=== PATIENT | female | born 1935 | race Caucasian/White ===

== ENCOUNTER → 2017-09-04 | Outpatient (CLI) | payer MEDICARE, OTHER ==
[2015-11-06 18:36] VITALS: BP 113/58
[~2017-09-04] MED LIST: AMLO5TAB2 PO; ASPI-630 PO; CA C1TAB62 PO; LOSA1TAB19 PO; METO-239 PO; MULT-658 PO; OMEG500C PO; REGADENOSON 0.4 MG/5 ML DISP.SYRIN. IV ONE
--- NOTE | 2017-09-04 11:06 | CARD ---
APPROVED REPORT EXAM: Two-dimensional and M-mode echocardiogram with Doppler and color Doppler. Other Information Quality : Average Rhythm : NSR INDICATION Chest Pain 2D DIMENSIONS RVDd2.8 (2.9-3.5cm)Left Atrium(2D)3.1 (1.6-4.0cm) IVSd1.3 (0.7-1.1cm)Aortic Root(2D)2.7 (2.0-3.7cm) LVDd4.1 (3.9-5.9cm)LVOT Diameter2.0 (1.8-2.4cm) PWd1.3 (0.7-1.1cm)LVDs2.4 (2.5-4.0cm) FS (%) 30.5 %SV52.2 ml LVEF(%)61.7 (>50%) Aortic Valve AoV Peak Bernardo.181.9cm/sAoV VTI41.8cm AO Peak GR.13.2mmHgLVOT Peak Bernardo.138.1cm/s LVOT VTI 33.20cmAO Mean GR.8mmHg RENETTA (VMAX)2.63bn6FJZ (VTI)2.52cm2 Mitral Valve MV E Qynlkggw30.4cm/sMV DECEL HMNN787pb MV A Kdcarrhp476.5cm/sMV SDP24sd E/A Ratio0.8MV A Jmooeeht071zw MVA (PHT)4.07cm2 TDI E/Lateral E'13.2E/Medial E'16.7 Pulmonary Valve PV Peak Tsgvepef67.2cm/sPV Peak Grad.3mmHg RVOT VTI12.2cm Tricuspid Valve TR P. Zerugxiy542es/sRAP YQDRKQAG8wjBf TR Peak Gr.74gtCfFSGY14jzFw Pulmonary Vein S1 Xvfxzvjb40.9cm/sD2 Uqiznqtx42.6cm/s LEFT VENTRICLE The left ventricle is normal size. There is borderline to mild concentric left ventricular hypertroph y. Left ventricle systolic function is normal. The Ejection Fraction is 60-65%. There is normal LV se gmental wall motion. The left ventricular diastolic function and filling is normal for age. There is no ventricular septal defect visualized. RIGHT VENTRICLE The right ventricle is normal size. The right ventricular systolic function is normal. ATRIA The left atrium size is normal. The right atrium size is normal. The interatrial septum is intact wit h no evidence for an atrial septal defect or patent foramen ovale as noted on 2-D or Doppler imaging. AORTIC VALVE The aortic valve is mildly calcified. The aortic valve is trileaflet. Doppler and Color Flow revealed no significant aortic regurgitation. There is no significant aortic valvular stenosis. MITRAL VALVE The mitral valve leaflets are calcified. There is no mitral valve stenosis. Doppler and Color Flow re vealed trace mitral regurgitation. TRICUSPID VALVE The tricuspid valve is normal in structure and function. Doppler and Color Flow revealed mild tricusp id regurgitation. The PA pressure was estimated at 38 mmHg. There is no tricuspid valve stenosis. PULMONIC VALVE The pulmonic valve is not well visualized. Doppler and Color Flow revealed no pulmonic valvular regur gitation. There is no pulmonic valvular stenosis. GREAT VESSELS The aortic root is normal in size. Normal pulmonary venous flow (Doppler). The IVC is normal in size and collapses >50% with inspiration. PERICARDIAL EFFUSION There is no evidence of significant pericardial effusion. Critical Notification Critical Value: No <Conclusion> Left ventricle systolic function is normal. The Ejection Fraction is 60-65%. There is normal LV segmental wall motion. Trace mitral regurgitation. Mild tricuspid regurgitation. The PA pressure was estimated at 38 mmHg. There is no evidence of significant pericardial effusion.
--- NOTE | 2017-09-04 13:37 | RAD ---
APPROVED REPORT Test Type: Pharmacological Stress Nurse/Tech: Dorinda Bingham R.N. Test Indications: fatigue, chest pain, abnormal ekg Cardiac History: htn Medications: see copy Medical History: see ehr Resting ECG: SR wide QRS Resting Heart Rate: 64 bpm Resting Blood Pressure: 126/62mmHg Pretest Chest Pain: No chest pain Nurse/Tech Notes lungs cta, heart tones regular Consent: The procedure was explained to the patient in lay terms. Informed consent was witnessed. Malik eout was entered into [facility]. History and Stress Test performed by RT Reza (R) (N) Pharm. Details Pharmacologic stress testing was performed using 0.4mg per 5ml of regadenoson given intravenously ove r 7-10 seconds. Stress Symptoms No chest pain or symptoms.Dyspnea POST EXERCISE Reason for Termination: Infusion complete Target HR: No Max HR: 89 bpm Max Blood Pressure: 138/67mmHg Chest Pain: No. Arrhythmia: Yes. PAC noted, Bundle branch block noted to change throughout recovery, no ST changes ST Change: No. INTERPRETATION Stress EKG Conclusion: Baseline EKG showed sinus rhythm with intraventricular conduction delay. Non diagnostic changes at peak stress. No arrhythmias. Imaging Protocol IMAGE PROTOCOL: Rest Tc-99m/stress Tc-99m 1 day Rest: Stress: Viability: Radiopharm.Tc99m KlahxohqiFk40k Sestamibi Kpnd78kFw 30mCi Duration 15min. 10min. Img Date 09/04/2017 09/04/2017 Inj-Img Hzck15tdl. 60min. Rest Admin Site:IV - Right AntecubitalAdministrator:RT Reza (R)(N) Stress Admin Site: IV - Right AntecubitalAdministrator: RT Reza (R)(N) STRESS DATA End Diast. Vol.81.0mlAv. Heart Rate72.0bpm End Syst. Vol.19.0mlCO Index BSA0.0L/min Myocardial Kzex428.0gEject. Efhoyiho50.0% Stress Rates Pk. Fill Rate2.44EDV/secLVtime Pk. Fill 225.07msec Pk. Empty Rate3.82ESV/secLVtime Pk. Pyghk640.79msec 10/23 Pk. Fill1.49EDV/sec Stress Scores Regional WT0.00Summed WT0.00 Regional WM0.00Summed WM2.00 Study quality was good. Left Ventricular size was Normal at Rest and Stress. Lung uptake was Normal. Left Ventricular ejection fraction is 77%. The rest and stress images show normal perfusion, normal contraction and thickening. LV Perf. Quant 17 Seg. SSS0.00 17 Seg. SRS1.00 17 Seg. SDS0.00 Stress Defect Extent (% LAD)0.00Rest Defect Extent (% LAD)10.00Rev. Defect Extent (% LAD)0.00 Stress Defect Extent (% LCX) 0.00Rest Defect Extent (% LCX)0.00Rev. Defect Extent (% LCX)0.00 Stress Defect Extent (% RCA)0.00Rest Defect Extent (% RCA)0.00Rev. Defect Extent (% RCA)0.00 Stress Defect Extent (% ROSA)0.00Rest Defect Extent (% ROSA)4.10Rev. Defect Extent (% ROSA)0.00 Conclusion 1. Regadenoson cardioisotope stress test did not show any evidence of ischemia or infarct. 2. Normal left ventricular systolic function with ejection fraction calculated at 77%. 3. Low risk for cardiac events.
== END | disposition home or self-care (01) ==
LOC: NM 09:33
PROVIDERS: ATTEND Internal Medicine Cardiovascular Disease
DX: I49.5 Sick sinus syndrome (principal); I45.4 Nonspecific intraventricular block; I07.1 Rheumatic tricuspid insufficiency; R94.31 Abnormal electrocardiogram [ECG] [EKG]; R53.83 Other fatigue; I10 Essential (primary) hypertension
CPT/HCPCS: 78452; 93017; 93306; 96374; 96375; 96376; A9500; J2785

== ENCOUNTER → 2018-07-24 | Outpatient (CLI) | payer MEDICARE, OTHER ==
[2015-11-06 18:36] VITALS: BP 113/58
[~2018-07-24] MED LIST changes: -AMLO5TAB2 PO; +AMLO5TAB7 PO; -REGADENOSON 0.4 MG/5 ML DISP.SYRIN. IV ONE
--- NOTE | 2018-07-25 08:44 | CARD ---
MR#: [id number] Date of Study: 07/24/2018 Ordering Physician: DEE CARLTON, Referring Physician: DEE CARLTON, Tech: Yessica Arora APPROVED REPORT EXAM: Two-dimensional and M-mode echocardiogram with Doppler and color Doppler. Other Information Quality : AverageHR: 64bpm Rhythm : NSRTechnically limited study due to body habitus. INDICATION Dyspnea RISK FACTORS Hypertension 2D DIMENSIONS RVDd2.5 (2.9-3.5cm)Left Atrium(2D)3.7 (1.6-4.0cm) IVSd1.1 (0.7-1.1cm)Aortic Root(2D)3.0 (2.0-3.7cm) LVDd4.9 (3.9-5.9cm)LVOT Diameter2.0 (1.8-2.4cm) PWd0.9 (0.7-1.1cm)IVSs3.1 (0.8-1.2cm) Aortic Valve AoV Peak Bernardo.187.5cm/sAoV VTI44.0cm AO Peak GR.14.1mmHgLVOT Peak Bernardo.136.6cm/s LVOT VTI 33.66cmAO Mean GR.9mmHg RENETTA (VMAX)1.49zb7MVJ (VTI)2.42cm2 Mitral Valve MV E Nxxpehno77.6cm/sMV DECEL IQRW914na MV A Ksjmkitm121.7cm/sMV REJ14rm E/A Ratio0.8MVA (PHT)3.63cm2 TDI E/Lateral E'11.9E/Medial E'13.0 Pulmonary Valve PV Peak Kdwsdiom012.5cm/sPV Peak Grad.4mmHg Tricuspid Valve TR P. Cercpeza609qv/sRAP KABXVHHV8jgQz TR Peak Gr.33mfUgYUKD71dtWw Pulmonary Vein S1 Qshnnnrm38.8cm/sD2 Vpopcjyi80.7cm/s PVa sqbnytfb000wuno LEFT VENTRICLE The left ventricle is normal size. There is normal left ventricular wall thickness. The left ventricu lar systolic function is normal and the ejection fraction is within normal range. The Ejection Fracti on is 55-60%. There is normal LV segmental wall motion. Transmitral Doppler flow pattern is Grade I-a bnormal relaxation pattern. RIGHT VENTRICLE The right ventricle is normal size. There is normal right ventricular wall thickness. The right ventr icular systolic function is normal. ATRIA The left atrium size is normal. The right atrium size is normal. The interatrial septum is intact wit h no evidence for an atrial septal defect or patent foramen ovale as noted on 2-D or Doppler imaging. AORTIC VALVE The aortic valve is not well visualized. Doppler and Color Flow revealed no significant aortic regurg itation. There is no significant aortic valvular stenosis. MITRAL VALVE The mitral valve is thickened but opens well. The posterior leaflet has calcification. There is no mi tral valve stenosis. Doppler and Color-flow revealed trace mitral regurgitation. TRICUSPID VALVE The tricuspid valve is normal in structure and function. Doppler and Color Flow revealed trace tricus pid regurgitation. RVSP 30 mm Hg. There is no tricuspid valve stenosis. PULMONIC VALVE The pulmonic valve is not well visualized. Doppler and Color Flow revealed no pulmonic valvular regur gitation. There is no pulmonic valvular stenosis. GREAT VESSELS The aortic root is normal in size. IVC is not well visualized. PERICARDIAL EFFUSION There is no evidence of significant pericardial effusion. Critical Notification Critical Value: No <Conclusion> The left ventricular systolic function is normal and the ejection fraction is within normal range. Th e Ejection Fraction is 55-60%. There is normal LV segmental wall motion. Signed by : Jacques Goodman, Electronically Approved : 07/25/2018 08:42:31
== END | disposition home or self-care (01) ==
LOC: ECHO 13:03
PROVIDERS: ATTEND Internal Medicine Critical Care Medicine
DX: R06.00 Dyspnea, unspecified (principal); I10 Essential (primary) hypertension
CPT/HCPCS: 93306